=== PATIENT | male | born 1935 | race Caucasian/White ===

== ENCOUNTER → 2017-03-20 | Outpatient (CLI) | payer MEDICARE ==
[~2017-03-20] MED LIST: AMLO5TAB2 PO; ASPI325T17 PO; ATOR10TA9 PO; CHOL100014 PO; FEBU40TA PO; FURO20TA3 PO; LINA5TAB PO; METO25TA35 PO; OMEG1CAP2 PO; OXYGEN INH; PANT40TA5 PO; POTA10TA31 PO; VALS320T2 PO; VIT1TABL32 PO; VITA1TAB3 PO
== END | disposition home or self-care (01) ==
LOC: CFH 12:39
PROVIDERS: ATTEND Internal Medicine Cardiovascular Disease
DX: I08.3 Combined rheumatic disorders of mitral, aortic and tricuspid valves (principal); I10 Essential (primary) hypertension; E11.9 Type 2 diabetes mellitus without complications; E78.5 Hyperlipidemia, unspecified; Z85.828 Personal history of other malignant neoplasm of skin
CPT/HCPCS: 93306

== ENCOUNTER 2018-02-12 19:55 | Inpatient (IN) | payer MEDICARE ==
[~2018-02-12] VITALS: Ht 177.8 cm; Wt 72.5 kg
[2018-02-12] MEDS ORDERED: ONDANSETRON 2MG/ML, 2ML IVPush ONE (20:30)
[2018-02-12] MEDS ORDERED: SODIUM CHLORIDE 0.9% 1,000ML IVBOLUS ONE ×2 (20:30→22:30)
[2018-02-12] MEDS ORDERED: ONDANSETRON ODT 4 MG ONE (20:57)
[2018-02-12 21:06] LABS: ALBUMIN 4.1 g/dL (3.4-5.0); ANION GAP 12 mmol/L (5-15); CALCIUM 9.7 mg/dL (8.5-10.1); CHLORIDE 107 mmol/L (98-107)
[2018-02-12 21:09] LABS: ALANINE AMINOTRANSFERASE 22 U/L (12-78); ALKALINE PHOSPHATASE 81 U/L (45-117); BILIRUBIN,TOTAL 0.9 mg/dL (0.2-1.0); CREATININE 1.79 mg/dL (0.7-1.3); TOTAL PROTEIN 8.4 g/dL (6.4-8.2)
[2018-02-12 21:16] LABS: MEAN CORPUSCULAR HEMOGLOBIN 35.6 pg (27.5-34.5); MEAN CORPUSCULAR HGB CONC 34.1 g/dL (33.2-36.2); MEAN CORPUSCULAR VOLUME 104.3 fL (81-97); MEAN PLATELET VOLUME 11.9 fL (7.4-10.4); PLATELET COUNT 136 x10^3/uL (130-400); RED BLOOD COUNT 4.33 x10^6/uL (4.38-5.82); RED CELL DISTRIBUTION WIDTH 14.3 % (9.4-14.8)
[2018-02-12 21:17] LABS: BASOPHILS # (AUTO) 0.01 x10^3/uL (0-0.1); BASOPHILS % (AUTO) 0 % (0-1); EOSINOPHILS # (AUTO) 0.04 x10^3/uL (0-0.4); EOSINOPHILS % (AUTO) 0 % (1-7); LYMPHOCYTES # (AUTO) 1.06 x10^3/uL (1-3.4); LYMPHOCYTES % (AUTO) 12 % (22-44); MD SCAN; MONOCYTES # (AUTO) 0.54 x10^3/uL (0.2-0.8); MONOCYTES % (AUTO) 6 % (2-9); NEUTROPHILS # (AUTO) 7.05 x10^3/uL (1.8-6.8); NEUTROPHILS % (AUTO) 81 % (42-75)
[2018-02-12 23:38] LABS: TROPONIN I < 0.015 ng/mL (0.000-0.045)
[2018-02-12] MEDS ORDERED: INSULIN (23:41)
[2018-02-12] MEDS ORDERED: [UNRECOGNIZED DRUG - OTHER] (23:41)
[2018-02-12] MEDS ORDERED: DULO60CA55 PO (23:41)
[2018-02-12] MEDS ORDERED: NIAC500C3 PO (23:41)
[2018-02-12] MEDS ORDERED: ASPI-515 PO (23:41)
[2018-02-13 00:27] VITALS: BP 167/67
[2018-02-13] MEDS ORDERED: ONDANSETRON 2MG/ML, 2ML IVPush PRN (00:30)
[2018-02-13] MEDS ORDERED: BISACODYL 10 MG SUPP PR PRN (00:30)
[2018-02-13] MEDS ORDERED: MAGNESIUM SULFATE PMX 2GM/50ML 50 ML IV ONE (00:30)
[2018-02-13] MEDS ORDERED: POLYETHYLENE GLYCOL 17 GM PACKET PO PRN (00:30)
[2018-02-13 01:22] LABS: FOLATE LEVEL 9.8 ng/mL (3.1-17.5)
[2018-02-13] MEDS: SODIUM CHLORIDE 0.9% 1,000 ML IV SCH ×3 (01:42→23:46)
[2018-02-13 03:52] VITALS: BP 116/66
[2018-02-13 05:36] LABS: CHLORIDE 112 mmol/L (98-107)
[2018-02-13 05:37] LABS: MEAN CORPUSCULAR HGB CONC 33.9 g/dL (33.2-36.2); MEAN CORPUSCULAR VOLUME 103.3 fL (81-97); RED BLOOD COUNT 3.85 x10^6/uL (4.38-5.82); RED CELL DISTRIBUTION WIDTH 13.8 % (9.4-14.8)
[2018-02-13 05:46] LABS: ALANINE AMINOTRANSFERASE 18 U/L (12-78); ALBUMIN 3.4 g/dL (3.4-5.0); ALKALINE PHOSPHATASE 68 U/L (45-117); ANION GAP 9 mmol/L (5-15); BILIRUBIN,TOTAL 0.6 mg/dL (0.2-1.0); CALCIUM 8.7 mg/dL (8.5-10.1); CREATININE 1.44 mg/dL (0.7-1.3); TOTAL PROTEIN 7.4 g/dL (6.4-8.2); TROPONIN I < 0.015 ng/mL (0.000-0.045)
[2018-02-13 06:00] LABS: BASOPHILS # (AUTO) 0.03 x10^3/uL (0-0.1); BASOPHILS % (AUTO) 1 % (0-1); EOSINOPHILS # (AUTO) 0.01 x10^3/uL (0-0.4); EOSINOPHILS % (AUTO) 0 % (1-7); LYMPHOCYTES # (AUTO) 0.99 x10^3/uL (1-3.4); LYMPHOCYTES % (AUTO) 17 % (22-44); MD SCAN; MEAN PLATELET VOLUME 11.3 fL (7.4-10.4); MONOCYTES # (AUTO) 0.21 x10^3/uL (0.2-0.8); MONOCYTES % (AUTO) 4 % (2-9); NEUTROPHILS # (AUTO) 4.66 x10^3/uL (1.8-6.8); NEUTROPHILS % (AUTO) 79 % (42-75); PLATELET COUNT 95 x10^3/uL (130-400)
[2018-02-13 07:29] VITALS: BP 118/71
[2018-02-13 07:53] LABS: MICROSCOPIC AUTO
[2018-02-13 08:04] LABS: CULTURE INDICATED? NO
[2018-02-13] MEDS ORDERED: SENNA/DOCUSATE TABLET PO SCH (09:00)
[2018-02-13] MEDS ORDERED: POTASSIUM CHLORIDE 10 MEQ TABLET.ER PO SCH (09:00)
[2018-02-13] MEDS ORDERED: ASPIRIN 325 MG TABLET PO SCH (09:00)
[2018-02-13 10:23] VITALS: BP 131/77
[2018-02-13] MEDS: VALSARTAN 320 MG TABLET PO SCH (10:24)
[2018-02-13] MEDS: OMEGA-3/FISH OIL CAPSULE PO SCH ×2 (10:25→20:41)
[2018-02-13] MEDS: METOPROLOL TARTRATE 25 MG TABLET PO SCH (10:25)
[2018-02-13] MEDS: DULOXETINE 30 MG CAPSULE.DR PO SCH (10:25)
[2018-02-13] MEDS: PANTOPROZOLE 40MG TABLET PO SCH (10:25)
[2018-02-13] MEDS: AMLODIPINE 5 MG TABLET PO SCH (10:25)
[2018-02-13] MEDS: FEBUXOSTAT 40 MG TABLET PO SCH (10:25)
[2018-02-13] MEDS: NIACIN 500 MG TABLET.ER PO SCH (10:25)
[2018-02-13 11:03] LABS: CLOSTRIDIUM DIFFICILE ANTIGEN NEGATIVE; CLOSTRIDIUM DIFFICILE TOXIN NEGATIVE (Negative)
[2018-02-13 11:18] LABS: TROPONIN I < 0.015 ng/mL (0.000-0.045)
[2018-02-13 13:58] VITALS: BP 106/70
[2018-02-13] MEDS: DIPHENOXYLATE/ATROPINE TABLET PO PRN ×2 (14:38→20:41)
[2018-02-13 19:26] VITALS: BP 126/70
[2018-02-13] MEDS ORDERED: ATORVASTATIN 10 MG TABLET PO SCH (21:00)
[2018-02-14 03:30] VITALS: BP 106/63
[2018-02-14] MEDS ORDERED: ASPIRIN 81 MG TABLET EC PO SCH (06:00)
[2018-02-14 07:38] VITALS: BP 114/65
[2018-02-14] MEDS: METOPROLOL TARTRATE 25 MG TABLET PO SCH (09:37)
[2018-02-14] MEDS: AMLODIPINE 5 MG TABLET PO SCH (09:37)
[2018-02-14] MEDS: FEBUXOSTAT 40 MG TABLET PO SCH (09:37)
[2018-02-14] MEDS: VALSARTAN 320 MG TABLET PO SCH (09:37)
[2018-02-14] MEDS: PANTOPROZOLE 40MG TABLET PO SCH (09:39)
[2018-02-14] MEDS: DULOXETINE 30 MG CAPSULE.DR PO SCH (09:39)
[2018-02-14] MEDS: OMEGA-3/FISH OIL CAPSULE PO SCH (09:40)
[2018-02-14] MEDS: NIACIN 500 MG TABLET.ER PO SCH (09:40)
[2018-02-14 14:00] VITALS: BP 121/69
== END 2018-02-14 17:30 | disposition home health service (06) | DRG 392 ==
LOC: ED 23:55 → EDIP 23:56 → 4EST 02-13 01:19
PROVIDERS: ADMIT Hospitalist; ATTEND Hospitalist
DX: A08.4 Viral intestinal infection, unspecified (principal); I50.32 Chronic diastolic (congestive) heart failure; I47.2 Ventricular tachycardia; I69.354 Hemiplegia and hemiparesis following cerebral infarction affecting left non-dominant side; I13.0 Hypertensive heart and chronic kidney disease with heart failure and stage 1 through stage 4 chronic kidney disease, or unspecified chronic kidney disease; E78.1 Pure hyperglyceridemia; D69.6 Thrombocytopenia, unspecified; E11.40 Type 2 diabetes mellitus with diabetic neuropathy, unspecified; E83.42 Hypomagnesemia; E86.0 Dehydration; K76.0 Fatty (change of) liver, not elsewhere classified; R09.02 Hypoxemia; Z66 Do not resuscitate; R19.7 Diarrhea, unspecified; N18.9 Chronic kidney disease, unspecified; E11.22 Type 2 diabetes mellitus with diabetic chronic kidney disease; Z79.4 Long term (current) use of insulin
CPT/HCPCS: 36415; 71045; 74176; 80053; 81001; 82607; 82746; 83690; 83735; 83880; 84484; 85025; 87324; 89055; 93005; 96361; 96374; J2405; J3475; J7030

== ENCOUNTER → 2018-05-01 | Outpatient (CLI) | payer MEDICARE ==
[~2018-05-01] MED LIST changes: -AMLO5TAB2 PO; +AMLO5TAB7 PO; +ASPI-515 PO; +DULO60CA55 PO; +INSULIN; +METO10TA82 PO; +NIAC500C3 PO; +SUCR1TAB33 PO; +[UNRECOGNIZED DRUG - OTHER]
== END | disposition home or self-care (01) ==
LOC: CFH 16:23
PROVIDERS: ATTEND Urology
DX: N28.89 Other specified disorders of kidney and ureter (principal)
CPT/HCPCS: 76770

== ENCOUNTER → 2018-06-25 | Outpatient (CLI) | payer MEDICARE ==
[~2018-06-25] MED LIST changes: +AMLO-150 PO; -AMLO5TAB7 PO
== END | disposition home or self-care (01) ==
LOC: CFH 15:39
PROVIDERS: ATTEND Family Medicine
DX: G47.51 Confusional arousals (principal)
CPT/HCPCS: 70551

== ENCOUNTER → 2018-07-29 | Outpatient (CLI) | payer MEDICARE | END | disposition home or self-care (01) | LOC: CFH 07:07 | PROVIDERS: ATTEND Psychiatry & Neurology Neurology | DX: M47.812 Spondylosis without myelopathy or radiculopathy, cervical region (principal); M48.02 Spinal stenosis, cervical region; R20.3 Hyperesthesia | CPT/HCPCS: 72141 ==

== ENCOUNTER → 2018-09-08 | Outpatient (CLI) | payer MEDICARE | END | disposition home or self-care (01) | LOC: CFH 15:45 | PROVIDERS: ATTEND Family Medicine | DX: R27.0 Ataxia, unspecified (principal) | CPT/HCPCS: 70544; 70547 ==

== ENCOUNTER 2018-09-13 14:37 | Inpatient (IN) | payer MEDICARE ==
[~2018-09-13] VITALS: Ht 177.8 cm; Wt 79.3 kg
--- NOTE | 2018-09-13 18:31 | NUR ---
PT PRESENTING TO ER FOR PAIN IN BILATERAL CALFS WITH SEVERE PAIN IN LEFT ANKLE SINCE SATURDAY. PT STATES JUST FINISHED COURSE OF LEVAQUIN FOR SKIN RASH SATURDAY, 10 DAY COURSE, WORRIED ABOUT POTENTIAL TENDON RUPTURE. US RESULTS BACK, NO DVT. SWELLING NOTED TO BOTH FEET. CONNECTED TO ALL MONITORING, VSS. FAMILY AT BEDSIDE. CALL LIGHT WITHIN REACH. AWAITING MD ASSESSMENT AND ADDITIONAL ORDERS.
--- NOTE | 2018-09-13 19:01 | NUR ---
MD TO BEDSIDE FOR ASSESSMENT, AWAITING ADDITIONAL ORDERS AT THIS TIME
[2018-09-13] MEDS ORDERED: CEFTRIAXONE PMX 1GM/50ML 50 ML IV ONE (19:02)
[2018-09-13] MEDS ORDERED: CEFTRIAXONE PMX 1GM/50ML 50 ML ONE (19:31)
--- NOTE | 2018-09-13 19:40 | NUR ---
IV PLACED, BLOOD CULTURES COLLECTED. ABX STARTED. ALL NEEDS ADDRESSED AT THIS TIME. CALL LIGHT WITHIN REACH
[2018-09-13 19:41] LABS: ALBUMIN 3.7 g/dL (3.4-5.0); ANION GAP 9 mmol/L (5-15); CALCIUM 9.6 mg/dL (8.5-10.1); CHLORIDE 107 mmol/L (98-107); CREATININE 1.77 mg/dL (0.7-1.3)
[2018-09-13] MEDS ORDERED: LEVO25TA4 PO (19:54)
[2018-09-13] MEDS ORDERED: RANI150C PO (19:54)
--- NOTE | 2018-09-13 20:05 | NUR ---
REPORT CALLED TO [facility], PT READY FOR TRANSPORT
--- NOTE | 2018-09-13 20:14 | NUR ---
HOSPITALIST AT BEDSIDE
[2018-09-13 20:36] VITALS: BP 134/78
[2018-09-13 20:40] LABS: BASOPHILS # (AUTO) 0.06 x10^3/uL (0-0.1); BASOPHILS % (AUTO) 1 % (0-1); EOSINOPHILS # (AUTO) 0.13 x10^3/uL (0-0.4); EOSINOPHILS % (AUTO) 1 % (1-7); LYMPHOCYTES # (AUTO) 2.33 x10^3/uL (1-3.4); LYMPHOCYTES % (AUTO) 21 % (22-44); MD SCAN; MEAN CORPUSCULAR HEMOGLOBIN 34.9 pg (27.5-34.5); MEAN CORPUSCULAR HGB CONC 34.1 g/dL (33.2-36.2); MEAN CORPUSCULAR VOLUME 102.5 fL (81-97); MEAN PLATELET VOLUME 12.2 fL (7.4-10.4); MONOCYTES % (AUTO) 8 % (2-9); NEUTROPHILS # (AUTO) 7.54 x10^3/uL (1.8-6.8); NEUTROPHILS % (AUTO) 69 % (42-75); PLATELET COUNT 123 x10^3/uL (130-400); RED BLOOD COUNT 3.99 x10^6/uL (4.38-5.82); RED CELL DISTRIBUTION WIDTH 13.6 % (9.4-14.8)
[2018-09-13] MEDS ORDERED: DOCUSATE 100 MG CAPSULE PO PRN (23:30)
[2018-09-13] MEDS ORDERED: LIDODERM 5% PATCH TD PRN (23:30)
[2018-09-13] MEDS ORDERED: LABETALOL 5MG/ML, 20ML IVPush PRN (23:30)
[2018-09-13] MEDS ORDERED: DIPHENHYDRAMINE 25 MG CAPSULE PO PRN (23:30)
[2018-09-13] MEDS ORDERED: ACETAMINOPHEN 325 MG TABLET PO PRN (23:30)
[2018-09-13] MEDS ORDERED: ONDANSETRON ODT 4 MG PO PRN (23:30)
[2018-09-13] MEDS ORDERED: HEPARIN 5,000 UNITS/ML, 1ML ONE (23:32)
[2018-09-13] MEDS: HEPARIN 5,000 UNITS/ML, 1ML SQ SCH (23:34)
[2018-09-13] MEDS ORDERED: LABETALOL 5 MG/ML SYRINGE IVPush PRN (23:45)
[2018-09-13] MEDS: ATORVASTATIN 10 MG TABLET PO SCH (23:48)
[2018-09-14] MEDS ORDERED: PHARMACY MAY ADJ FOR RENAL FX MC PRN
[2018-09-14 01:25] VITALS: BP 100/55
[2018-09-14 01:38] LABS: MICROSCOPIC AUTO
[2018-09-14 01:40] LABS: CULTURE INDICATED? NO
[2018-09-14] MEDS: LEVOTHYROXINE 25 MCG TABLET PO SCH (05:49)
[2018-09-14 06:21] LABS: ANION GAP 8 mmol/L (5-15); CALCIUM 9.1 mg/dL (8.5-10.1); CHLORIDE 108 mmol/L (98-107)
[2018-09-14 06:22] LABS: CREATININE 1.74 mg/dL (0.7-1.3)
[2018-09-14 07:53] LABS: BASOPHILS # (AUTO) 0.03 x10^3/uL (0-0.1); BASOPHILS % (AUTO) 0 % (0-1); EOSINOPHILS # (AUTO) 0.15 x10^3/uL (0-0.4); EOSINOPHILS % (AUTO) 2 % (1-7); LYMPHOCYTES # (AUTO) 2.16 x10^3/uL (1-3.4); LYMPHOCYTES % (AUTO) 24 % (22-44); MD MORPH REVIEW ONLY; MEAN CORPUSCULAR HEMOGLOBIN 33.9 pg (27.5-34.5); MEAN CORPUSCULAR HGB CONC 33.9 g/dL (33.2-36.2); MEAN PLATELET VOLUME 12.1 fL (7.4-10.4); MONOCYTES # (AUTO) 0.81 x10^3/uL (0.2-0.8); MONOCYTES % (AUTO) 9 % (2-9); NEUTROPHILS % (AUTO) 65 % (42-75); PLATELET COUNT 110 x10^3/uL (130-400); RED BLOOD COUNT 3.72 x10^6/uL (4.38-5.82); RED CELL DISTRIBUTION WIDTH 13.4 % (9.4-14.8)
[2018-09-14 07:54] LABS: <PLATELET ESTIMATE> DECREASED; <RBC MORPHOLOGY> NORMAL; LARGE PLATELETS 1+
[2018-09-14 08:03] VITALS: BP 117/70
[2018-09-14] MEDS ORDERED: FEBUXOSTAT 40 MG TABLET PO SCH (09:00)
[2018-09-14] MEDS ORDERED: VALSARTAN 320 MG TABLET PO SCH (09:00)
[2018-09-14] MEDS ORDERED: METOPROLOL TARTRATE 25 MG TABLET PO SCH (09:00)
[2018-09-14] MEDS: ASPIRIN 81 MG TABLET EC PO SCH (09:19)
[2018-09-14] MEDS: HEPARIN 5,000 UNITS/ML, 1ML SQ SCH ×2 (09:19→17:25)
[2018-09-14] MEDS: DULOXETINE 30 MG CAPSULE.DR PO SCH (09:20)
[2018-09-14] MEDS: FAMOTIDINE 20 MG TABLET PO SCH (09:20)
[2018-09-14] MEDS: AMLODIPINE 5 MG TABLET PO SCH (09:20)
[2018-09-14] MEDS: LINAGLIPTIN 5 MG TAB PO SCH (09:25)
[2018-09-14] MEDS: AMPICILLIN/SULBACTAM 3 GM in SODIUM CHLORIDE 0.9% 100 ML IV SCH ×2 (09:26→17:25)
[2018-09-14] MEDS ORDERED: GADOBUTROL 7.5 MMOL/7.5 ML PFS ONE (11:01)
[2018-09-14 14:42] VITALS: BP 108/70
[2018-09-14] MEDS: INSULIN LISPRO 100 UNITS/ML, PEN SQ-INSULIN SCH ×2 (16:00→20:50)
[2018-09-14] MEDS ORDERED: VANCOMYCIN PER PHARMACY MC PRN (18:30)
[2018-09-14] MEDS ORDERED: PHARMACOKINETIC MONITORING MC PRN (18:30)
[2018-09-14 19:59] VITALS: BP 103/78
[2018-09-14] MEDS: VANCOMYCIN 1,500 MG in SODIUM CHLORIDE 0.9% 250 ML IV SCH (20:47)
[2018-09-14] MEDS: ATORVASTATIN 10 MG TABLET PO SCH (20:58)
[2018-09-15] MEDS: HEPARIN 5,000 UNITS/ML, 1ML SQ SCH ×3 (00:44→17:06)
[2018-09-15] MEDS: AMPICILLIN/SULBACTAM 3 GM in SODIUM CHLORIDE 0.9% 100 ML IV SCH ×3 (00:44→17:04)
[2018-09-15 02:48] VITALS: BP 96/56
[2018-09-15] MEDS: INSULIN LISPRO 100 UNITS/ML, PEN SQ-INSULIN SCH ×4 (05:45→21:02)
[2018-09-15] MEDS: LEVOTHYROXINE 25 MCG TABLET PO SCH (05:45)
[2018-09-15 08:59] VITALS: BP 109/65
[2018-09-15] MEDS: LINAGLIPTIN 5 MG TAB PO SCH (09:17)
[2018-09-15] MEDS: DULOXETINE 30 MG CAPSULE.DR PO SCH (09:17)
[2018-09-15] MEDS: ASPIRIN 81 MG TABLET EC PO SCH (09:18)
[2018-09-15] MEDS: FAMOTIDINE 20 MG TABLET PO SCH (09:18)
[2018-09-15] MEDS: AMLODIPINE 5 MG TABLET PO SCH (09:18)
[2018-09-15 14:56] VITALS: BP 109/72
[2018-09-15] MEDS: ATORVASTATIN 10 MG TABLET PO SCH (20:59)
[2018-09-15] MEDS: VALSARTAN 320 MG TABLET PO SCH (21:00)
[2018-09-15] MEDS: METOPROLOL TARTRATE 25 MG TABLET PO SCH ×2 (21:00→21:01)
[2018-09-15] MEDS ORDERED: FEBUXOSTAT 40 MG TABLET PO SCH (21:00)
[2018-09-15 21:05] VITALS: BP 103/65
[2018-09-16] MEDS: AMPICILLIN/SULBACTAM 3 GM in SODIUM CHLORIDE 0.9% 100 ML IV SCH ×2 (01:19→10:36)
[2018-09-16] MEDS: HEPARIN 5,000 UNITS/ML, 1ML SQ SCH ×2 (01:19→08:29)
[2018-09-16 02:36] VITALS: BP 94/53
[2018-09-16] MEDS: LEVOTHYROXINE 25 MCG TABLET PO SCH (05:06)
[2018-09-16] MEDS: INSULIN LISPRO 100 UNITS/ML, PEN SQ-INSULIN SCH ×2 (07:00→11:00)
[2018-09-16] MEDS: AMLODIPINE 5 MG TABLET PO SCH (08:29)
[2018-09-16] MEDS: VANCOMYCIN 1,500 MG in SODIUM CHLORIDE 0.9% 250 ML IV SCH (08:29)
[2018-09-16] MEDS: ASPIRIN 81 MG TABLET EC PO SCH (08:29)
[2018-09-16] MEDS: DULOXETINE 30 MG CAPSULE.DR PO SCH (08:30)
[2018-09-16] MEDS: FAMOTIDINE 20 MG TABLET PO SCH (08:30)
[2018-09-16] MEDS: LINAGLIPTIN 5 MG TAB PO SCH (09:00)
[2018-09-16 09:15] VITALS: BP 108/68
== END 2018-09-16 12:41 | disposition home health service (06) | DRG 558 ==
LOC: ED 19:35 → 4NOR 20:38
PROVIDERS: ADMIT Family Medicine; ATTEND Family Medicine
DX: M76.62 Achilles tendinitis, left leg (principal); L03.115 Cellulitis of right lower limb; F33.9 Major depressive disorder, recurrent, unspecified; E03.9 Hypothyroidism, unspecified; E11.22 Type 2 diabetes mellitus with diabetic chronic kidney disease; E78.5 Hyperlipidemia, unspecified; I13.10 Hypertensive heart and chronic kidney disease without heart failure, with stage 1 through stage 4 chronic kidney disease, or unspecified chronic kidney disease; K21.9 Gastro-esophageal reflux disease without esophagitis; N18.3 Chronic kidney disease, stage 3 (moderate); M65.88 Other synovitis and tenosynovitis, other site; Z79.899 Other long term (current) drug therapy; Z79.84 Long term (current) use of oral hypoglycemic drugs
CPT/HCPCS: 36415; 80048; 81001; 82040; 82962; 83605; 85025; 87040; 93970; 99285; A9585; G0378; J0295; J0696; J1644; J3370; J1815; J7050

== ENCOUNTER 2018-10-09 15:26 | Emergency (ER) | payer MEDICARE ==
[~2018-10-09] VITALS: Ht 177.8 cm; Wt 82.0 kg
[~2018-10-09 15:26] MED LIST changes: +LEVO25TA4 PO; +RANI150C PO
--- NOTE | 2018-10-09 15:59 | NUR ---
MOUTHPIECE MAKER: PT TO ROOM FROM LOBBY, GAIT SLOW AND STEADY.
--- NOTE | 2018-10-09 16:08 | NUR ---
PT AMBULATORY TO ROOMJ 23 W/ C/O LLE TENDERNESS. PT SENT HERE FROM PA'S OFFICE TO R/O DVT. WAS SEEN HERE TO R/O DVT IN RLE A FEW WKS AGO. PT ALSO STATES HE WAS GIVEN LEVAQUIN FOR CELLULITIS TO LLE A FEW WKS AGO. PT DENIES HX DVT/PE. PT DENIES CP/SOB. PT RESTING ON GURNEY. NADN. MONITORS APPLIED. WARM BLANKET PROVIDED.
--- NOTE | 2018-10-09 16:23 | NUR ---
US AT BEDSIDE.
--- NOTE | 2018-10-09 16:57 | NUR ---
PT RESTING ON GURNEY. NADN. BOTELLO.
--- NOTE | 2018-10-09 16:59 | NUR ---
MICHELLE HERNDON AT BEDSIDE ADMINISTERING KENALOG.
[2018-10-09 17:00] VITALS: BP 131/66
[2018-10-09] MEDS ORDERED: TRIAMCINOLONE ACETONIDE 40 MG/ML, 1ML IM ONE (17:00)
== END 2018-10-09 17:19 | disposition home or self-care (01) ==
LOC: ED 16:46
DX: M76.61 Achilles tendinitis, right leg (principal); E11.9 Type 2 diabetes mellitus without complications; I10 Essential (primary) hypertension
CPT/HCPCS: 99284

== ENCOUNTER 2019-03-25 17:50 | Emergency (ER) | payer MEDICARE ==
[~2019-03-25] VITALS: Ht 177.8 cm; Wt 81.2 kg
[~2019-03-25 17:50] MED LIST changes: -DULO60CA55 PO; +DULO60CA56 PO
--- NOTE | 2019-03-25 18:28 | NUR ---
PT AMB TO ROOM FROM LOBBY WITH STEADY GAIT.
--- NOTE | 2019-03-25 18:46 | NUR ---
MD AT BEDSIDE TO ASSESS PT
[2019-03-25 18:49] VITALS: BP 140/85
[2019-03-25] MEDS ORDERED: FEBU80TA2 PO (18:49)
--- NOTE | 2019-03-25 18:50 | NUR ---
THIS IS AN 83YO MALE THAT COMES IN TODAY WITH C/O RLQ PAIN. PT STATES HE HAS HAD A HERNIA REPAIR IN THE SAME AREA "ABOUT A YEAR AGO DECEMBER" PT REPORTS THAT HE NEVER FELT BACK TO NORMAL AFTER. PT STATES THE PAIN HAS BEEN WORSENING OVER THE PAST TWO WEEKS. PT IS CONNECTED TO MONITORS AT THIS TIME VSS, DAUGHTER AT BEDSIDE AND CALL LIGHT IN REACH. PT EXPRESSES NO FURTHER NEEDS AT THIS TIME.
[2019-03-25] MEDS ORDERED: ACETAMINOPHEN 500 MG TABLET PO ONE (19:00)
[2019-03-25] MEDS ORDERED: ONDANSETRON ODT 4 MG PO ONE (19:00)
[2019-03-25 19:27] LABS: ALANINE AMINOTRANSFERASE 29 U/L (12-78); ALBUMIN 3.8 g/dL (3.4-5.0); ANION GAP 8 mmol/L (5-15); CALCIUM 9.4 mg/dL (8.5-10.1); CHLORIDE 109 mmol/L (98-107)
[2019-03-25 19:30] LABS: ALKALINE PHOSPHATASE 71 U/L (45-117); BILIRUBIN,TOTAL 0.6 mg/dL (0.2-1.0); CREATININE 1.85 mg/dL (0.7-1.3); TOTAL PROTEIN 7.6 g/dL (6.4-8.2)
[2019-03-25 19:43] LABS: MEAN CORPUSCULAR HEMOGLOBIN 34.7 pg (27.5-34.5); MEAN CORPUSCULAR HGB CONC 34.1 g/dL (33.2-36.2); MEAN CORPUSCULAR VOLUME 101.7 fL (81-97); MEAN PLATELET VOLUME 12.8 fL (7.4-10.4); PLATELET COUNT 128 x10^3/uL (130-400); RED BLOOD COUNT 4.22 x10^6/uL (4.38-5.82); RED CELL DISTRIBUTION WIDTH 13.8 % (9.4-14.8)
[2019-03-25 19:44] LABS: BASOPHILS # (AUTO) 0.16 x10^3/uL (0-0.1); BASOPHILS % (AUTO) 3 % (0-1); EOSINOPHILS # (AUTO) 0.12 x10^3/uL (0-0.4); EOSINOPHILS % (AUTO) 2 % (1-7); LYMPHOCYTES # (AUTO) 2.36 x10^3/uL (1-3.4); LYMPHOCYTES % (AUTO) 39 % (22-44); MD MORPH REVIEW ONLY; MONOCYTES # (AUTO) 0.62 x10^3/uL (0.2-0.8); MONOCYTES % (AUTO) 10 % (2-9); NEUTROPHILS # (AUTO) 2.82 x10^3/uL (1.8-6.8); NEUTROPHILS % (AUTO) 46 % (42-75)
[2019-03-25 19:49] LABS: <PLATELET ESTIMATE> DECREASED; LARGE PLATELETS 1+
--- NOTE | 2019-03-25 19:49 | NUR ---
IV STARTED. URINE SAMPLE SENT TO LAB
--- NOTE | 2019-03-25 19:50 | NUR ---
CREAT ON PT ELEVATED, VERIFIED WITH THAT HE STILL WANTED CT W CONTRAST. CT UPDATED THAT TESTING IS OK
--- NOTE | 2019-03-25 19:58 | NUR ---
TAKEN TO CT
[2019-03-25] MEDS ORDERED: SODIUM CHLORIDE 0.9% 1,000ML IVBOLUS ONE (20:00)
[2019-03-25 20:04] LABS: MICROSCOPIC NOT IND
--- NOTE | 2019-03-25 20:06 | NUR ---
PT BACK FROM CT
[2019-03-25 20:08] LABS: CULTURE INDICATED? NO
[2019-03-25] MEDS ORDERED: OMNIPAQUE 350 MG/ML, 100ML BOTTLE ONE (20:10)
[2019-03-25] MEDS ORDERED: ACETAMINOPHEN 500 MG TABLET ONE (20:15)
--- NOTE | 2019-03-25 20:27 | NUR ---
PT MEDICATED PER MAR, BOLUS STARTED. PT OFFERED ZOFRAN BUT STATES HE DOESN'T NEED IT AT THIS TIME.
--- NOTE | 2019-03-25 20:30 | NUR ---
ALL RESULTS BACK AT THIS TIME. CHART UP FOR RECHECK, AWAITING FURTHER ORDERS.
== END 2019-03-25 21:24 | disposition home or self-care (01) ==
LOC: ED 20:10
PROC: 0YQ60ZZ Repair Left Inguinal Region, Open Approach (ICD-10-PCS; principal; 2019-03-25)
DX: K40.91 Unilateral inguinal hernia, without obstruction or gangrene, recurrent (principal); E11.9 Type 2 diabetes mellitus without complications; I10 Essential (primary) hypertension
CPT/HCPCS: 36415; 49520; 74177; 80053; 81003; 83605; 83690; 85025; 99284; J7030; Q9967

== ENCOUNTER → 2020-02-19 | Outpatient (CLI) | payer MEDICARE ==
[~2020-02-19] MED LIST changes: +CHOL10003 PO; +FEBU80TA2 PO; +INSU100I13 SQ-INSULIN; +OMEG1CAP34 PO
[2020-02-19 15:03] LABS: ALANINE AMINOTRANSFERASE 25 U/L (12-78); ALBUMIN 4.2 g/dL (3.4-5.0); ANION GAP 4 mmol/L (5-15); CALCIUM 9.7 mg/dL (8.5-10.1); CHLORIDE 110 mmol/L (98-107)
[2020-02-19 15:05] LABS: ALKALINE PHOSPHATASE 76 U/L (45-117); BILIRUBIN,TOTAL 0.9 mg/dL (0.2-1.0); TOTAL PROTEIN 8.3 g/dL (6.4-8.2)
== END | disposition home or self-care (01) ==
LOC: STAR 13:37
PROVIDERS: ATTEND Thoracic Surgery (Cardiothoracic Vascular Surgery)
DX: Z01.818 Encounter for other preprocedural examination (principal); Z20.828 Contact with and (suspected) exposure to other viral communicable diseases
CPT/HCPCS: 36415; 80053; 87635; 93005

== ENCOUNTER 2020-02-24 07:03 | Day surgery (SDC) | payer MEDICARE ==
[~2020-02-24] VITALS: Ht 177.8 cm; Wt 78.4 kg
[~2020-02-24 07:03] MED LIST changes: -PANT40TA5 PO; +PANT40TA6 PO
[2020-02-24] MEDS ORDERED: LACTATED RINGERS 1,000 ML IV SCH ×2 (07:34→09:22)
[2020-02-24 07:35] VITALS: BP 150/91
[2020-02-24] MEDS ORDERED: VITA1TAB19 PO (07:41)
[2020-02-24] MEDS ORDERED: OMEP-110 PO (07:41)
[2020-02-24] MEDS ORDERED: VIT1TABL34 PO (07:41)
[2020-02-24] MEDS ORDERED: CHLORHEXIDINE 15 ML UDC MM ONE (08:00)
[2020-02-24] MEDS ORDERED: BUPIVACAINE/PF 0.5% ONE (08:17)
[2020-02-24] MEDS ORDERED: EPINEPHRINE 1 MG/ML, 1ML ONE (08:17)
[2020-02-24] MEDS ORDERED: ONDANSETRON 2MG/ML, 2ML IVPush PRN ×2 (08:30→09:30)
[2020-02-24] MEDS ORDERED: FENTANYL PF 100 MCG/2ML IV PRN (08:30)
[2020-02-24] MEDS ORDERED: ACETAMINOPHEN 325 MG TABLET PO PRN (08:30)
[2020-02-24] MEDS ORDERED: hydrALAzine 20 MG/ML, 1ML IV PRN (08:30)
[2020-02-24] MEDS ORDERED: OXYcodone 5 MG/5 ML ORAL.SOL UDC PO PRN (08:30)
[2020-02-24] MEDS ORDERED: morphine SULFATE 10 MG/ML, 1ML IVPush PRN ×2 (08:30→09:30)
[2020-02-24] MEDS ORDERED: LABETALOL 5MG/ML, 20ML IV PRN (08:30)
[2020-02-24] MEDS ORDERED: MEPERIDINE/PF 25MG/0.5ML IVPush PRN (08:30)
[2020-02-24] MEDS ORDERED: HYDROmorphone 1 MG/ML, 1ML INJ IVPush PRN (08:30)
[2020-02-24] MEDS ORDERED: ROCURONIUM 10 MG/ML,10ML ONE (08:34)
[2020-02-24] MEDS ORDERED: NEOSTIGMINE 1 MG/ML, 10ML ONE (08:34)
[2020-02-24] MEDS ORDERED: PROPOFOL 10 MG/ML, 20ML ONE (08:34)
[2020-02-24] MEDS ORDERED: PHENYLEPHRINE 10 MG/ML ONE (08:34)
[2020-02-24] MEDS ORDERED: CEFAZOLIN 1,000 MG ONE (08:34)
[2020-02-24] MEDS ORDERED: FENTANYL PF 100 MCG/2ML ONE (08:34)
[2020-02-24] MEDS ORDERED: GLYCOPYRROLATE 0.2MG/1ML, 5ML ONE (08:34)
[2020-02-24] MEDS ORDERED: KETOROLAC 30 MG/1 ML IVPush PRN (09:30)
[2020-02-24] MEDS ORDERED: HYDROcodone/APAP 5/325 TABLET PO PRN (09:30)
[2020-02-24] MEDS ORDERED: KETOROLAC 30 MG/1 ML ONE (09:41)
== END 2020-02-24 11:15 | disposition home or self-care (01) ==
LOC: OUT 07:03
PROVIDERS: ATTEND Thoracic Surgery (Cardiothoracic Vascular Surgery)
DX: G57.81 Other specified mononeuropathies of right lower limb (principal); Z85.828 Personal history of other malignant neoplasm of skin; E11.9 Type 2 diabetes mellitus without complications; F32.9 Major depressive disorder, single episode, unspecified; I10 Essential (primary) hypertension
CPT/HCPCS: 64708; 82962; J0171; J0690; J1885; J2370; J2704; J2710; J3010; J7120

== ENCOUNTER 2020-06-11 16:34 | Emergency (ER) | payer MEDICARE ==
[~2020-06-11] VITALS: Ht 177.8 cm; Wt 82.2 kg
[~2020-06-11 16:34] MED LIST changes: +AZIT500T PO; +CEFD300C37 PO; +FEBU80TA3 PO; +METH4TAB2 PO; +MUPI22OI2 TP; +OMEP-110 PO; +VIT1TABL34 PO; +VITA1TAB19 PO
--- NOTE | 2020-06-11 18:37 | NUR ---
FACTORY LABORER: PT TO ROOM FROM LOBBY VIA W/C
--- NOTE | 2020-06-11 19:21 | NUR ---
FIRST CONTACT. PT. HAS THE PULSE OX AND BP CUFF IN PLACE. PT. DENIES C/O PAIN. RA SATS ARE 95% WITH RESPIRATIONS EUPNEIC. PT. STATES HE IS COMING FROM THE [facility] FOR AN INFUSION. PT. REPORTS HIS SON WHO IS A DOCTOR IN [place] DISCUSSED A TREATMENT PLAN WITH DR. GERONIMO.
[2020-06-11] MEDS ORDERED: PLEASE ENTER ALLERGIES MC SCH (19:30)
[2020-06-11] MEDS ORDERED: BAMLANIVIMAB 700 MG in SODIUM CHLORIDE 0.9% 180 ML IVPB ONE (20:00)
[2020-06-11] MEDS ORDERED: FILTER 0.22 MICRON IV ONE (20:00)
--- NOTE | 2020-06-11 20:34 | NUR ---
medication gtt hung per emar, and pt tolerating well. piv to left AC intact, and flushed before hand and flushes well, no swelling, no redness and no pain noted from pt. pt given urinal and uop 200cc
--- NOTE | 2020-06-11 20:44 | NUR ---
PT. HAS HIS INFUSION GOING ON THE PUMP. HE IS RESTING WITHOUT CONCERNS. VSS, PULSE OX AND BP CUFF IN PLACE. SIDERAILS REMAIN UP X 2 WITH THE CALL LIGHT IN PLACE. HIS HOB IS ELEVATED AND HE HAS BLANKETS FOR WARMTH. REPORT GIVEN.
[2020-06-11 22:35] VITALS: BP 133/79
== END 2020-06-11 22:39 | disposition home or self-care (01) ==
LOC: ED 18:46
DX: U07.1 COVID-19 (principal); J18.9 Pneumonia, unspecified organism; I10 Essential (primary) hypertension; E11.9 Type 2 diabetes mellitus without complications
CPT/HCPCS: J7050; M0239; Q0239; 96365; 99285